=== PATIENT | female | born 1950 | race Caucasian/White ===

== ENCOUNTER → 2019-04-15 | Outpatient (CLI) | payer MEDICARE, MEDICAID ==
[~2019-04-15] MED LIST: AMIO200T42 PO; ASPI-496 PO; CARV6.252 PO; CLOP75TA PO; ENAL20TA PO; FURO-92 PO; HYDR-3237 PO; ISOS30TA8 PO; NITR0.4T41 SL; OXYC5CAP2 PO; POTA20TA91 PO; SIMV10TA3 PO
== END | disposition home or self-care (01) ==
LOC: CVU 14:18
PROVIDERS: ATTEND Registered Nurse
DX: I36.1 Nonrheumatic tricuspid (valve) insufficiency (principal); I25.5 Ischemic cardiomyopathy; E78.5 Hyperlipidemia, unspecified; I10 Essential (primary) hypertension; Z95.0 Presence of cardiac pacemaker; I25.2 Old myocardial infarction
CPT/HCPCS: C8929; Q9957

== ENCOUNTER → 2020-05-11 | Outpatient (CLI) | payer MEDICARE, MEDICAID ==
[~2020-05-11] MED LIST changes: -ENAL20TA PO; +ENAL20TA9 PO; +REGADENOSON 0.4 MG/5 ML SYRINGE ONE; +SIMV10TA18 PO; -SIMV10TA3 PO
== END | disposition home or self-care (01) ==
LOC: CFH 08:03
PROVIDERS: ATTEND Internal Medicine Cardiovascular Disease
DX: I50.42 Chronic combined systolic (congestive) and diastolic (congestive) heart failure (principal); I25.10 Atherosclerotic heart disease of native coronary artery without angina pectoris; I25.5 Ischemic cardiomyopathy
CPT/HCPCS: 78452; 93017; A9502; J2785